=== PATIENT | male | born 1985 | race Caucasian/White ===

== ENCOUNTER 2023-01-16 09:20 | Emergency (ER) | payer MEDICAID ==
[~2023-01-16] VITALS: Ht 182.9 cm; Wt 99.8 kg
[2023-01-16 09:27] VITALS: BP_SYST 131
--- NOTE | 2023-01-16 09:27 | NUR ---
PT BIB FROM HOME C/O CHEST PAIN 03/24, SOB, AND LEFT ARM NUMBNESS SINCE 01/16 1600. PT STATES JUST ARRIVED HOME FROM WORK AND FELT NUMBNESS AND SOB. PT STATES PAIN IS NON RADIATING AND LOCATED ON LEFT SIDE. PT STATES FEELS LIKE PRESSURE. PT HISTORY OF STROKE 6 YEARS AGO PER . PT ON MONITOR VSS BEDSIDE.
--- NOTE | 2023-01-16 09:35 | NUR ---
ER at bedside examining patient.
--- NOTE | 2023-01-16 10:04 | NUR ---
PT TAKEN TO RADIOLOGY FOR CHEST XRAY
[2023-01-16 10:15] LABS: BASOPHILS # (AUTO) 0.1 K/uL (0.0-0.2); BASOPHILS % (AUTO) 0.8 % (0.0-2.0); EOSINOPHILS # (AUTO) 0.2 K/uL (0.0-0.4); EOSINOPHILS % (AUTO) 3.4 % (0.0-4.0); HEMATOCRIT 43.4 % (36-54); HEMOGLOBIN 14.6 g/dL (14.0-18.0); LYMPHOCYTES # (AUTO) 1.9 K/uL (1.0-5.5); LYMPHOCYTES % (AUTO) 31.7 % (20.5-51.5); MEAN CORPUSCULAR HEMOGLOBIN 31 pg (27-31); MEAN CORPUSCULAR HGB CONC 34 % (32-36); MEAN CORPUSCULAR VOLUME 91 fL (79.0-98.0); MONOCYTES # (AUTO) 0.5 K/uL (0.0-1.0); MONOCYTES % (AUTO) 8.5 % (1.7-9.3); NEUTROPHILS # (AUTO) 3.3 K/uL (1.8-7.7); NEUTROPHILS % (AUTO) 55.6 % (40.0-70.0); PLATELET COUNT (AUTO) 230 K/uL (130-430); RED BLOOD CELL COUNT(AUTO) 4.78 MIL/uL (4.2-6.2); RED CELL DISTRIBUTION WIDTH 13.4 % (9.0-15.0); WHITE BLOOD COUNT (AUTO) 5.9 K/uL (4.8-10.8)
[2023-01-16 10:20] LABS: ANION GAP 7 (5-15); CALCIUM 8.4 mg/dL (8.4-11.0); CHLORIDE 104 mmol/L (98-107); CREATININE 1.16 mg/dL (0.55-1.30); GFR AFRICAN AMERICAN 91 mL/min (>90); GLUCOSE 107 mg/dL (70-99); UREA NITROGEN, BLOOD 19 mg/dL (8-21)
[2023-01-16 10:26] LABS: ALANINE AMINOTRANSFERASE 34 U/L (12-78); ALBUMIN 3.4 g/dL (3.4-4.8); ASPARTATE AMINOTRANSFERASE 23 U/L (10-37); TOTAL BILIRUBIN 0.5 mg/dL (0.0-1.0)
--- NOTE | 2023-01-16 10:55 | NUR ---
ER [TONIO] at bedside examining patient.
--- NOTE | 2023-01-16 11:08 | NUR ---
Patient given written and verbal discharge instructions and verbalizes understanding. ER MD ELIZALDE discussed with patient the results and treatment provided. Patient in stable condition. ID arm band removed. Patient educated on NONSPECIFIC CHEST PAIN and to follow up with PMD. Pain Scale 5. Opportunity for questions provided and answered.
[2023-01-16 11:11] VITALS: BP_SYST 126
== END 2023-01-16 11:08 | disposition home or self-care (01) ==
LOC: SED 09:20
DX: R07.9 Chest pain, unspecified (principal); E78.5 Hyperlipidemia, unspecified; I10 Essential (primary) hypertension; Z79.899 Other long term (current) drug therapy
CPT/HCPCS: 36415; 71045; 80053; 84484; 85025; 93005; 99285

== ENCOUNTER 2023-04-08 19:42 | Emergency (ER) | payer MEDICAID ==
[~2023-04-08] VITALS: Ht 182.9 cm; Wt 95.3 kg
[2023-04-08 20:08] VITALS: BP_SYST 120; PULSE 82; RESP 18; TEMP 98.5; O2SAT 97
[2023-04-08] MEDS ORDERED: ONDANSETRON 4 MG ODT TAB PO ONE (22:00)
[2023-04-08] MEDS ORDERED: ONDA-8 TL (22:01)
[2023-04-08 22:10] VITALS: BP_SYST 123; PULSE 69; RESP 20; TEMP 97; O2SAT 98
== END 2023-04-08 22:10 | disposition home or self-care (01) ==
LOC: SED 19:42
DX: K52.9 Noninfective gastroenteritis and colitis, unspecified (principal); R11.10 Vomiting, unspecified; R50.9 Fever, unspecified; Z79.899 Other long term (current) drug therapy; Z20.822 Contact with and (suspected) exposure to COVID-19
CPT/HCPCS: 99283; 87426; 36415; 87804 ×2; Q0162